=== PATIENT | male | born 1960 | race Caucasian/White ===

== ENCOUNTER → 2017-03-02 | Outpatient (CLI) | payer OTHER ==
--- NOTE | 2017-03-02 12:31 | ECHOS ---
DATE OF SERVICE: 03/02/2017 AGE: 56Y SEX: M HT: 76 WT: 330 lbs. Protocol [place]: X Others: Stress Echo Stage: III Dur. of Exercise: 7:30 *Heart Rate Blood Pressure *Rest: 70 Rest: 108/60 * *Max. Achieved: 150 Maximum BP: 152/60 85% PMHR: 141 100% PMHR: 166 *METS: 9.1 INDICATIONS: Family history. MEDICATIONS: Atorvastatin, lisinopril, metformin, Celebrex. Baseline EKG revealed a normal sinus rhythm with LVH by voltage criteria. Patient walked on standard [place] protocol for 7 minutes, 30 seconds, developed fatigue and shortness of breath. He had a sharp, right-sided chest pain seemed very atypical. He developed ST segment depression involving inferolateral leads suggestive of ischemia, but these are considered nonspecific findings and could be related to hypertension. Patient did not have any clear-cut angina. There was no arrhythmia. By EKG criteria, this is a positive stress test with limited exercise capacity without subjective symptoms suggestive of angina. He had atypical chest pain. Patient's maximal heart rate was 150 beats per minute well above 85% of predicted maximum. Resting blood pressure was 108/60 and the peak blood pressure was 152/60. Baseline echo images reveal normal wall motion and wall thickening of all segments. At peak exercise, there was good augmentation of left ventricular wall motion and wall thickening of all segments suggesting that there is no evidence of stress-induced ischemia on this study. FINAL IMPRESSION: 1. Fair exercise capacity with a positive stress test by EKG criteria without subjective symptoms of angina and there was no arrhythmia. 2. A normal stress echocardiogram without any evidence of stress-induced ischemia. The EKG changes are probably related to left ventricular hypertrophy.
== END | disposition home or self-care (01) ==
LOC: RADNMMAIN 09:41
PROVIDERS: ATTEND Family Medicine
DX: R06.00 Dyspnea, unspecified (principal); R53.83 Other fatigue; Z82.49 Family history of ischemic heart disease and other diseases of the circulatory system
CPT/HCPCS: 93017; 93350